=== PATIENT | male | born 1975 | race Caucasian/White ===

== ENCOUNTER 2022-12-09 13:02 | Emergency (ER) | payer MEDICAID, SELFPAY ==
[2022-12-09 13:13] VITALS: BP 204/136; PULSE 83; RESP 18; TEMP 36.7; O2SAT 98; BMI 41.9
--- NOTE | 2022-12-09 13:14 | ED_ITS ---
HPI - General Adult General Chief complaint: General Medical Stated complaint: spider bite on left leg Time Seen by Provider: 12/09/22 13:27 Source: patient Mode of arrival: ambulatory Limitations: no limitations Related Data Previous Rx's Medication Instructions Recorded amoxicillin 500 mg tablet 500 mg PO TID lyme disease 14 days 12/09/22 #42 tabs Allergies Allergy/AdvReac Type Severity Reaction Status Date / Time No Known Allergies Allergy Verified 12/09/22 13:10 [No Known Allergies*] PMFSH Social History Social History Advance Directives: No Physical Exam ED Vital Signs: Vital Signs - 24 hr 12/09/22 13:13 Temperature 98.1 F Pulse Rate 83 Respiratory Rate 18 Blood Pressure 204/136 H Pulse Oximetry 98 Oxygen Delivery Method Room Air BMI result Body Mass Index 41.9 Discharge Plan Discharge Clinical Impression: Acute Lyme disease with erythema migrans lesion 5 cm or greater in diameter, High blood pressure Patient Disposition: Home, Self-Care Instructions: Lyme Disease (ED), Tick Bite (ED), Heart Healthy Diet (DC), Low- Sodium Diet (ED), Hypertension (ED) Prescriptions: New amoxicillin 500 mg tablet 500 mg PO TID 14 Days Qty: 42 0RF Referrals: [facility] [Provider Group] [facility] [Provider Group] [facility] [place] [facility] [place]] [facility] [place] [facility] [Provider Group] [facility] [place] [facility] [place]] [facility] [place] [facility] [Provider Group]
--- NOTE | 2022-12-09 14:23 | ED.SKABFB ---
HPI - Skin/Abscess/Foreign Bdy General Chief complaint: General Medical Stated complaint: spider bite on left leg Time Seen by Provider: 12/09/22 13:27 Source: patient Mode of arrival: ambulatory Limitations: no limitations History of Present Illness HPI narrative: 47-year-old male presenting to the ER with complaints of a red rash that is warm and tender to the right posterior thigh that he noticed over the past few days. He reports he is always in [place] often and believes it might be a tick or a spider bite. He reports that he did take off a tick out of his right hip area approximately 1 month ago. Although he reports he has not had any other symptoms. Denies changes in lotions or detergents. Denies new medications or any changes in medications. Denies drainage from rash. Denies CP SOB or any difficulty breathing. Denies wheezing, facial swelling or throat swelling. Denies any difficulty swallowing or chest tightness. Denies any recent sick contacts or recent travel. Constitutional: has not had fever, chills, body aches or recent illness. Respiratory: has not had cough or shortness of breath. Cardiac: has not had chest pain or palpitations. Gastrointestinal: has not had abdominal pain, nausea, vomiting, or diarrhea. Musculoskeletal: has not had pain in the joints or extremities. Muscle aches or stiffness. Neurologic: has not had recent headache, dizziness, numbness or tingling. MD complaint: rash Onset (ago): day(s) Location: LLE Severity: mild Quality: aching Pain Consistency: constant Relieving factors: none Exacerbating factors: none Context: witnessed insect bite Associated symptoms: denies other symptoms Treatments prior to arrival: none Related Data Previous Rx's Medication Instructions Recorded amoxicillin 500 mg tablet 500 mg PO TID lyme disease 14 days 12/09/22 #42 tabs Allergies Allergy/AdvReac Type Severity Reaction Status Date / Time No Known Allergies Allergy Verified 12/09/22 13:10 [No Known Allergies*] Review of Systems Review of Systems: Constitutional : No Weight loss, No Fever, No Chills, No Night Sweats, No Fatigue, No Malaise ENT/Mouth : No Hearing loss, No Ear Pain, No Nasal Congestion, No Sinus Pain, No Hoarseness, No sore throat, No Rhinorrhea, No Swallowing Difficulty Eyes: No Eye Pain, No Swelling, No Redness, No Foreign Body, No Discharge, No Vision Changes Cardiovascular : No Chest Pain, No SOB, No Dyspnea on Exertion, No Orthopnea, No Edema, No Palpitations Respiratory : No Cough, No Sputum, No Wheezing, No Smoke Exposure, No Dyspnea Gastrointestinal : No Nausea, No Vomiting, No Diarrhea, No Constipation, No abdominal Pain, No Hematochezia, No Melena Genitourinary : no irregular bleeding, No Dysuria, No Urinary Frequency, No Hematuria, No Urinary Incontinence, No Urgency, No Flank Pain, No Urinary Flow Changes, No Hesitancy Musculoskeletal : No joint pain, No Myalgias, No Joint Swelling Skin : No Skin Lesions, + rash Neuro : No Weakness, No Numbness, No Paresthesias, No Loss of Consciousness, No Dizziness, No Headache Psych : No Anxiety/Panic, No Depression, No SI/HI/AH/VH, No Social Issues, Heme/Lymph: No Bruising, No Bleeding,No Lymphadenopathy Endocrine : No Polyuria, No Polydipsia, No Temperature Intolerance Yes all other systems are reviewed and are negative [facility] Past Medical History Attestation statement: The following information was validated with the patient. Source: old records reviewed and nursing notes reviewed Social History Social History Advance Directives: No Physical Exam Vital Signs: Vital Signs: Last Vital Signs Temp 98.1 F 12/09/22 13:13 Pulse 83 12/09/22 13:13 Resp 18 12/09/22 13:13 BP 204/136 H 12/09/22 13:13 Pulse Ox 98 12/09/22 13:13 O2 Del Method Room Air 12/09/22 13:13 BMI result Body Mass Index 41.9 vital signs have been reviewed as normal and appeared to be correct. Blood pressure normal Heart rate normal. Respiration rate normal. Temperature normal. Oxygen saturation normal. Appearance: Alert. Oriented X3. No acute distress. Head: Normal external exam. Normocephalic. Atraumatic. Eyes: PERRLA. EOMI. Conjunctiva and sclera normal. Eyelids normal. ENT: Pharynx normal. Uvula midline. Moist mucous membranes. Neck: Normal inspection. Neck supple. FROM. CVS: Normal heart rate and rhythm. Respiratory: No respiratory distress. Painless inspiration. Skin: Skin warm and dry. Normal skin color. Normal skin turgor. To left posterior thigh patient has an erythematous lesion non blanchable consistent with erythema migraines. No fluctuance or streaking or drainage or foreign bodies noted. No obvious puncture wounds. No tick or insect attached at this time. No additional lesions/lacerations noted. Extremities: Extremities exhibit normal range of motion. Extremities nontender. Neuro: Oriented X 3. No motor deficit. No sensory deficit. Reflexes normal. Normal steady gait. No focal neuro deficits noted. Vascular: + radial pulses/+ 2 distal pedal pulses/+2 dorsalis pedis b/l. Normal cap refill. No cyanosis noted to upper extremity nails and lower extremity toes nails. Course Course Course Narrative: 47-year-old male who is always in the was recently had a tick bite a month ago presenting with erythema migraine to the left thigh appears to be Lyme disease. I educated this patient also printed out multiple up-to-date resources. Myself, the nurses and Taya Caballero in triage tried to educate the patient. We explained to him that we can obtain his blood work and obtain a Lyme titer although it does not always, positive although we would recommend obtaining a Lyme titer. I also recommended treatment and explained to him that if he does not be treated for Lyme disease he can have future neurological symptoms. I explained to him I cannot force him to take the antibiotics that he would have to do his own research online disease. Therefore I gave the patient 3 options and I explained to him he can either take the antibiotics and not obtained the Lyme titer, have the Lyme titer not have the antibiotics or take the Lyme titer test and take the antibiotics although patient reports he does not want a Lyme titer he would just rather take the antibiotics. Therefore will DC home with amoxicillin as patient does not want to be dose with doxycycline as he is always in the [place] and in the sun and does not want to sunburned. Up-to-date reports that this is an alternative regimen for the patient therefore patient will be given amoxicillin 500 mg t.i.d. for 14 days. He is also noted to have high blood pressure on exam he denies any cardiac related complaints reports that he does not want to be on blood pressure medication does not want any additional labs or imaging or EKG at this time as he denies any complaints. Therefore will give him referral to PCPs and instruct patient to return if any new or worsening symptoms and will give him the amoxicillin prescription for possible Lyme. Patient understands return if any new or worsening symptoms. I considered Roel Centeno, LIU, SSS, EM, infx, sepsis but the hx, exam & or data did not support the dxs. Pt/family was advised that some diseases present atypically & the pt was given explicit DC instructions. Medical Decision Making Medical Decision Making MDM Narrative: see course Differential Diagnosis Differential Diagnoses: The differential diagnosis associated with the presentation includes see course External Record Review External record reviewed: Inpatient record, Office record, Outpatient record, Prior outpatient labs, Prior outpatient radiology, Primary care record and Outside ED record All prior labs/ imaging /EKG and notes that are accessible in our system reviewed by myself Tests considered The following testing was considered but not selected: labs including Lyme titer although patient refusing Prescription Management I considered prescription management with: Antibiotic Chronic Conditions Patient?s care impacted by: Hypertension (undiagnosed ) Discharge Plan Discharge Clinical Impression: Acute Lyme disease with erythema migrans lesion 5 cm or greater in diameter, High blood pressure Patient Disposition: Home, Self-Care Instructions: Lyme Disease (ED), Tick Bite (ED), Heart Healthy Diet (DC), Low-Sodium Diet (ED), Hypertension (ED) Prescriptions: New amoxicillin 500 mg tablet 500 mg PO TID 14 Days Qty: 42 0RF Referrals: [facility] [Provider Group] [facility] [Provider Group] [facility] [place] [facility] [place]] [facility] [place] [facility] [place]] [facility] [place] [facility]] [facility] [place] [facility] [Provider Group]
--- NOTE | 2022-12-09 14:33 | PC.NURSE ---
discharge teaching provided to pt with provider and PA student at bedside. Pt perseverating on symtoms that warrant treatment of Lyme Disease. Presented objective findings to patient, requests further printed education from provider. This nurse witnessed Provider and student provided printed education to patient. pt verbalizes understanding and will return w/ new worsening symptoms
== END 2022-12-09 14:37 | disposition home or self-care (01) ==
PROVIDERS: Emergency Provider Emergency Medicine
DX: A69.20 Lyme disease, unspecified (principal); I10 Essential (primary) hypertension
CPT/HCPCS: 99282; 99283